=== PATIENT | female | born 1950 | race Caucasian/White ===

== ENCOUNTER → 2016-10-13 | Outpatient (CLI) | payer MEDICARE ==
[2015-01-02 14:33] VITALS: BP 113/64
[~2016-10-13] MED LIST: CELE200C PO; FAMO-63 PO; FURO-69 PO; HYDR-2762 PO; HYPR15DR9 EACHEYE; IBUP200T58 PO; LOPE1TAB4 PO; MUPI1OIN NS; NAPR220T70 PO; POTA20TA82 PO; WARF-78 PO
--- NOTE | 2016-10-13 15:57 | RAD ---
DATE: 10/13/2016 EXAM: DIGITAL SCREEN BILAT W/CAD HISTORY: Screening study. COMPARISON: 06/27/2014 This study was interpreted with the benefit of Computerized Aided Detection (CAD). The breast parenchyma shows scattered fibroglandular densities. Breast parenchyma level B. FINDINGS: Digital MLO and CC mammograms of both breasts were obtained. Comparison study is dated 06/27/2014. The breast parenchyma is composed of scattered fibroglandular densities which can obscure a lesion on mammography (breast density code B). No spiculated mass is seen. No malignant appearing calcification or area of architectural distortion is noted. Benign-appearing calcifications are seen within both breasts. Since the previous examination there has been no significant interval change. IMPRESSION: BI-RADS Category 1, negative. There is no mammographic evidence of malignancy. Routine yearly screening mammography is recommended for follow-up. BI-RADS CATEGORY: 1 NEGATIVE RECOMMENDED FOLLOW-UP: 12M 12 MONTH FOLLOW-UP PQRS compliance statement: Patient information was entered into a reminder system with a target due date 10/13/2017 for the next mammogram. Mammography is a sensitive method for finding small breast cancers, but it does not detect them all and is not a substitute for careful clinical examination. A negative mammogram does not negate a clinically suspicious finding and should not result in delay in biopsying a clinically suspicious abnormality. "Our facility is accredited by the [employer] Mammography [employer]."
== END | disposition home or self-care (01) ==
LOC: MAMMO 12:18
PROVIDERS: ATTEND Internal Medicine
DX: Z12.31 Encounter for screening mammogram for malignant neoplasm of breast (principal)
CPT/HCPCS: G0202; 77067

== ENCOUNTER → 2017-03-16 | Outpatient (CLI) | payer MEDICARE, OTHER | END | disposition home or self-care (01) | LOC: KCIC US 10:57 | DX: I10 Essential (primary) hypertension (principal) | CPT/HCPCS: 76770; 93975 ==

== ENCOUNTER → 2017-08-09 | Outpatient (CLI) | payer MEDICARE, OTHER ==
[~2017-08-09] MED LIST changes: +BUPIVACAINE MPF 0.25% 10 ML VIAL.; -CELE200C PO; -FAMO-63 PO; -FURO-69 PO; -HYDR-2762 PO; -HYPR15DR9 EACHEYE; -IBUP200T58 PO; +IOHEXOL 180 MG/ML 10 ML VIAL.; +LIDOCAINE 1% PF 2 ML VIAL.; -LOPE1TAB4 PO; -MUPI1OIN NS; -NAPR220T70 PO; -POTA20TA82 PO; -WARF-78 PO; +methylPREDNISolone ACETATE 80 MG/ML VIAL.
== END ==
LOC: PNCL 10:11
DX: M16.11 Unilateral primary osteoarthritis, right hip (principal); I10 Essential (primary) hypertension; M19.90 Unspecified osteoarthritis, unspecified site; Z90.710 Acquired absence of both cervix and uterus; Z98.49 Cataract extraction status, unspecified eye; Z96.651 Presence of right artificial knee joint; Z96.642 Presence of left artificial hip joint; Z79.899 Other long term (current) drug therapy; Z88.8 Allergy status to other drugs, medicaments and biological substances; Z82.61 Family history of arthritis; Z80.8 Family history of malignant neoplasm of other organs or systems; Z83.3 Family history of diabetes mellitus; Z82.49 Family history of ischemic heart disease and other diseases of the circulatory system; Z80.1 Family history of malignant neoplasm of trachea, bronchus and lung; Z98.41 Cataract extraction status, right eye; K21.9 Gastro-esophageal reflux disease without esophagitis; Z90.721 Acquired absence of ovaries, unilateral; Z98.890 Other specified postprocedural states; D64.9 Anemia, unspecified; Z86.14 Personal history of Methicillin resistant Staphylococcus aureus infection
CPT/HCPCS: 20610; 77002; J1040; J3490; Q9965

== ENCOUNTER → 2017-10-17 | Outpatient (CLI) | payer MEDICARE, OTHER ==
[2015-01-02 14:33] VITALS: BP 113/64
[~2017-10-17] MED LIST changes: -BUPIVACAINE MPF 0.25% 10 ML VIAL.; +CELE200C PO; +CRESTOR5 MG PO; +FAMO-63 PO; +FURO-69 PO; +HYDR-2762 PO; +HYPR15DR9 EACHEYE; +IBUP200T58 PO; -IOHEXOL 180 MG/ML 10 ML VIAL.; -LIDOCAINE 1% PF 2 ML VIAL.; +LOPE1TAB4 PO; +LOSA25TA5 PO; +MUPI1OIN NS; +NAPR220C4 PO; +NAPR220T70 PO; +POTA20TA82 PO; +WARF-78 PO; -methylPREDNISolone ACETATE 80 MG/ML VIAL.
--- NOTE | 2017-10-17 12:32 | RAD ---
DATE: 10/17/2017 EXAM: MAMMO SHABNAM SCREENING BILATERAL HISTORY: Routine screening COMPARISON: 10/13/2016 This study was interpreted with the benefit of Computerized Aided Detection (CAD). The breast parenchyma shows scattered fibroglandular densities. Breast parenchyma level B. FINDINGS: 2-D and 3-D tomosynthesis imaging was performed in CC and MLO projections. No new or enlarging breast densities are seen. Several benign type calcifications are noted. No suspicious microcalcifications have developed. IMPRESSION: Stable mammograms without evidence of malignancy. BI-RADS CATEGORY: 2 BENIGN FINDING(S) RECOMMENDED FOLLOW-UP: 12M 12 MONTH FOLLOW-UP PQRS compliance statement: Patient information was entered into a reminder system with a target due date for the next mammogram. Mammography is a sensitive method for finding small breast cancers, but it does not detect them all and is not a substitute for careful clinical examination. A negative mammogram does not negate a clinically suspicious finding and should not result in delay in biopsying a clinically suspicious abnormality. "Our facility is accredited by the [employer] Mammography [employer]."
== END | disposition home or self-care (01) ==
LOC: MAMMO 15:01
PROVIDERS: ATTEND Internal Medicine
DX: Z12.31 Encounter for screening mammogram for malignant neoplasm of breast (principal); I10 Essential (primary) hypertension; K21.9 Gastro-esophageal reflux disease without esophagitis; Z79.899 Other long term (current) drug therapy; Z96.651 Presence of right artificial knee joint; Z96.642 Presence of left artificial hip joint; Z86.14 Personal history of Methicillin resistant Staphylococcus aureus infection; Z88.8 Allergy status to other drugs, medicaments and biological substances; Z86.2 Personal history of diseases of the blood and blood-forming organs and certain disorders involving the immune mechanism; Z90.721 Acquired absence of ovaries, unilateral; Z90.710 Acquired absence of both cervix and uterus; Z82.49 Family history of ischemic heart disease and other diseases of the circulatory system; Z80.1 Family history of malignant neoplasm of trachea, bronchus and lung; Z83.3 Family history of diabetes mellitus; Z82.61 Family history of arthritis; Z80.8 Family history of malignant neoplasm of other organs or systems
CPT/HCPCS: 77063; 77067

== ENCOUNTER → 2017-11-13 | Outpatient (CLI) | payer MEDICARE ==
[2015-01-02 14:33] VITALS: BP 113/64
[~2017-11-13] MED LIST changes: +BUPIVACAINE MPF 0.25% 10 ML VIAL. ONE; +IOHEXOL 180 MG/ML 10 ML VIAL. ONE; +LIDOCAINE 2% PF 2ML VIAL. ONE; +methylPREDNISolone ACETATE 80 MG/ML VIAL. ONE
--- NOTE | 2017-11-13 17:18 | PAIN ---
DATE OF SERVICE: 11/13/2017 PROGRESS NOTE FOR PAIN CLINIC DIAGNOSIS: Right hip joint pain with primary osteoarthritis, right hip joint. HISTORY OF PRESENT ILLNESS: The patient is a 67-year-old female who returns for followup status post right intraarticular hip joint injection, last seen on 08/09/2017. The patient did very well with about a 60% improvement overall. For the first month and a half, was doing much better, increased distance walking, greater ability to maintain ambulation with greater comfort and ease, was climbing hills better, stepping up on stairs better, now is beginning to return with pain in the right hip and groin as it was previously. The patient reports it is much worse with standing and walking, can bother with sitting as well, but better with lying down. The patient reports it is an 8 on a scale of 10 at its worst, 3-5 on average and 2 at its least and is a 5 today. The patient reports no new motor or sensory deficits, no new bowel or bladder incontinence. The patient reports it awakens her from sleep occasionally if she sleeps on her right side, but usually not do more than every 6-8 hours at night. The patient can usually reposition and get the pain to decrease. The patient reports no new motor or sensory deficits, no new bowel or bladder incontinence. The patient describes the pain as aching, burning, stabbing, becoming more constant in the right hip and groin itself. PHYSICAL EXAMINATION: VITAL SIGNS: The patient's blood pressure is 123/68, pulse , respirations 18, temperature 97.5 degrees Fahrenheit, height is 5 feet 5 inches, weight is 167 pounds. GENERAL: The patient is awake, alert, oriented, appropriate, very pleasant demeanor. HEENT: Head shows normocephalic, atraumatic. Extraocular movements are intact and symmetrical. Oral cavity: Mucous membranes are moist and pink. Dentition is intact. NECK: Shows anterior throat supple without palpable lymphadenopathy noted. Swallow reflex is symmetrical. CHEST: Shows normal on inspection. Breath sounds are clear to auscultation bilaterally. HEART: Shows S1, S2 clear. No murmurs auscultated. ABDOMEN: Soft, nontender, nondistended. No palpable organomegaly is noted. No rebound or guarding demonstrated. BACK: Shows spine grossly in the midline. Normal appearing thoracic kyphosis and lumbar lordotic curvature. Lumbar paraspinous muscle shows symmetrical on inspection, on palpation shows some moderate tenderness without radiation. No tenderness over the sacroiliac regions. The patient has good rotational motion of lumbar spine, both laterally as well as extension and flexion without difficulty. EXTREMITIES: The patient's lower extremities show deep tendon reflexes at 1+ in the patellar and tendo-calcaneus tendons. Motor exam is strong with 5/5 dorsiflexion, extension, quadriceps and hamstring flexion and equal. The patient does have a positive Dinesh sign on the right with external rotation of the right hip with significant pain radiating into the groin as well as into the gluteus. Options were discussed with the patient. The patient's old chart was reviewed as her current medication regimen updated. Current review of systems updated today as well. We will proceed with a right intraarticular hip joint injection with fluoroscopic guidance today. Risks were again discussed including, but not limited to bleeding, infection, possibility of epidural hematoma and subsequent neurologic compromise, dural puncture, headaches, spinal cord and/or nerve damage, side effects of steroid medication and poor results regarding pain control. The patient understands and wished to proceed. The patient will return to the clinic in approximately 2 weeks for followup, was counseled on return appointment, activity level and side effects to be aware of. DIAGNOSIS: Right hip joint pain with primary osteoarthritis, right hip joint. PROCEDURE: Right intraarticular hip joint injection using C-arm fluoroscopic guidance under sterile prep and drape using local anesthetic. MEDICATION INJECTED: A total of 80 mg of Depo-Medrol plus 3 mL of 0.25% of bupivacaine and 2 mL of Isovue for contrast. CONDITION AT DISCHARGE: Stable. The patient tolerated the procedure well, had no complications. TEJ SANDRA MD DR: OMAR/cyndi JOB#: [id number] / [id number]
== END | disposition home or self-care (01) ==
LOC: PNCL 07:38
PROVIDERS: ATTEND Anesthesiology
DX: M16.11 Unilateral primary osteoarthritis, right hip (principal); Z88.5 Allergy status to narcotic agent; Z88.8 Allergy status to other drugs, medicaments and biological substances
CPT/HCPCS: 20610; 77002; J1040; J2001; J3490; Q9965

== ENCOUNTER → 2018-03-05 | Outpatient (CLI) | payer MEDICARE ==
[2015-01-02 14:33] VITALS: BP 113/64
[~2018-03-05] MED LIST changes: -BUPIVACAINE MPF 0.25% 10 ML VIAL. ONE; -HYDR-2762 PO; +HYDR-2765 PO; -IOHEXOL 180 MG/ML 10 ML VIAL. ONE; -LIDOCAINE 2% PF 2ML VIAL. ONE; +LOSA1TAB2 PO; -LOSA25TA5 PO; +LOSA25TA54 PO; +OXYC1TAB15 PO; -methylPREDNISolone ACETATE 80 MG/ML VIAL. ONE
[2018-03-05 09:28] LABS: ALBUMIN 3.9 g/dL (3.4-5.0); CALCIUM 9.1 mg/dL (8.5-10.1); CREATININE 1.2 mg/dL (0.6-1.0); GFR 44.5; POTASSIUM 3.6 mmol/L (3.5-5.1)
[2018-03-05 09:33] LABS: BASO # 0.1 x10^3/uL (0.0-0.2); BASO % 1 % (0-3); EOS # 0.1 x10^3/uL (0.0-0.7); EOS % 2 % (0-3); HEMATOCRIT 35.2 % (36.0-47.0); HEMOGLOBIN 12.1 g/dL (12.0-15.5); LYMPH % 19 % (24-48); MEAN CORPUSCULAR HEMOGLOBIN 28 pg (25-35); MEAN CORPUSCULAR HGB CONC 34 g/dL (31-37); MEAN CORPUSCULAR VOLUME 80 fL (79-100); MONO # 0.5 x10^3/uL (0.0-1.1); MONO % 9 % (0-9); NEUT # 3.6 x10^3uL (1.8-7.7); NEUT % 69 % (31-73); PLATELET COUNT 239 x10^3/uL (140-400); RED BLOOD COUNT 4.38 x10^6/uL (3.50-5.40); RED CELL DISTRIBUTION WIDTH 13.8 % (11.5-14.5); WHITE BLOOD COUNT 5.2 x10^3/uL (4.0-11.0)
[2018-03-05 09:39] LABS: PROTHROMBIN TIME PATIENT 12.9 SEC (11.7-14.0)
--- NOTE | 2018-03-05 12:25 | EKG ---
[facility] [address] [place] [address] Test Date: 2018-03-05 Test Time: 12:13:23 Pat Name: ELEUTERIO LEWIS Department: Patient ID: [id number] Room: Gender: F Materials Inspector: [facility] : 1950 Requested By: TOI WINSTON Order Number: [id number] Reading MD: Earl Martin MD Measurements Intervals [place] Rate: 60 P: 69 MI: 140 QRS: 12 QRSD: 88 T: 45 QT: 406 QTc: 406 Interpretive Statements SINUS RHYTHM NON-SPECIFIC ST/T CHANGES Electronically Signed On 03-07-2018 10:16:54 [employer] TM1 DEVELOPER by Earl Martin MD
[2018-03-05 12:32] LABS: BILIRUBIN,URINE NEGATIVE (NEG); CLARITY,URINE CLOUDY; COLOR,URINE YELLOW; NITRITE,URINE NEGATIVE (NEG); PROTEIN,URINE NEGATIVE (NEG-TRACE); UROBILINOGEN,URINE 0.2 mg/dL (0.2 mg/dL)
[2018-03-05 12:44] LABS: BACTERIA,URINE 0 /HPF (0-FEW); HYALINE CASTS, URINE MODERATE /HPF; RBC,URINE 0 /HPF (0-2); SQUAMOUS EPITHELIAL CELL,UR MOD /LPF
--- NOTE | 2018-03-05 15:09 | RAD ---
PROCEDURE: CHEST PA LATERAL CLINICAL INDICATION: HYPERTENSION, POST OP EVALUATION COMPARISON: None FINDINGS: No pneumothorax identified. Cardiac and mediastinal contours unremarkable. No pulmonary consolidation or acute airspace disease. No acute osseous abnormalities identified. IMPRESSION: No pulmonary consolidation or acute airspace disease. Electronically signed by: Pedro Enrique DO (03/05/2018 3:05 PM) [id number]
== END | disposition home or self-care (01) ==
LOC: SURGPAT 13:30
PROVIDERS: ATTEND Orthopaedic Surgery
DX: Z01.818 Encounter for other preprocedural examination (principal); M16.11 Unilateral primary osteoarthritis, right hip; I10 Essential (primary) hypertension; R94.31 Abnormal electrocardiogram [ECG] [EKG]
CPT/HCPCS: 36415; 71046; 80048; 81001; 82040; 85025; 85610; 85651; 85730; 87086; 87641; 93005

== ENCOUNTER → 2018-10-18 | Outpatient (CLI) | payer MEDICARE ==
[2018-03-22 07:49] VITALS: BP 128/62
--- NOTE | 2018-10-18 14:57 | RAD ---
DATE: 10/18/2018 8:58 AM EXAM: MAMMO SHABNAM SCREENING BILATERAL HISTORY: routine screening evaluation. COMPARISON: Prior mammographic imaging 06/27/2014, 10/13/2016, [id number] Bilateral CC and MLO views of the breasts were performed. Bilateral breast tomosynthesis was performed in CC and MLO projections. This study was interpreted with the benefit of Computerized Aided Detection (CAD). FINDINGS: Breast Density: FATTY The Breast Parenchyma is primarily fatty replaced. Breast parenchyma level density A. Benign calcifications are present. The parenchymal pattern appears stable. No suspicious masses, microcalcifications or architectural distortion is present to suggest malignancy in either breast. The visualized axillae are unremarkable. IMPRESSION: No mammographic evidence of malignancy. BI-RADS CATEGORY: 2 BENIGN FINDING(S) RECOMMENDED FOLLOW-UP: 12M 12 MONTH FOLLOW-UP Annual screening mammography is recommended, unless clinically indicated sooner based on symptoms or change in physical exam. PQRS compliance statement: Patient information was entered into a reminder system with a target due date for the next mammogram. Mammography is a sensitive method for finding small breast cancers, but it does not detect them all and is not a substitute for careful clinical examination. A negative mammogram does not negate a clinically suspicious finding and should not result in delay in biopsying a clinically suspicious abnormality. "Our facility is accredited by the [employer] Mammography [employer]."
== END | disposition home or self-care (01) ==
LOC: MAMMO 08:46
PROVIDERS: ATTEND Family Medicine
DX: Z12.31 Encounter for screening mammogram for malignant neoplasm of breast (principal); N64.89 Other specified disorders of breast
CPT/HCPCS: 77063; 77067

== ENCOUNTER → 2020-12-01 | Outpatient (CLI) | payer MEDICARE ==
[2018-03-22 07:49] VITALS: BP 128/62
[~2020-12-01] MED LIST changes: +POTA20TA4 PO; -POTA20TA82 PO; -WARF-78 PO; +WARF5TAB2 PO
--- NOTE | 2020-12-01 16:45 | RAD ---
Bilateral digital screening 2-D and 3-D (digital breast tomosynthesis) mammogram: Reason for examination: Routine screening. Comparison: Mammograms from 10/18/2018 and 10/17/2017. Interpretation was made with the benefit of CAD. FINDINGS: Breast density: Category A. Breast tissue is almost entirely fatty. No suspicious breast mass, malignant appearing calcifications, or architectural distortion is seen. IMPRESSION: No evidence of malignancy. Assessment: BI-RADS 1. Negative. Recommendation: Routine screening mammograms. The patient will receive a letter with the results in the mail. Patient information will be entered i nto the mammography reminder system with a target recall date for the next mammogram. A reminder manjinder er will be generated. Electronically signed by: Rosetta Barnett MD (12/01/2020 4:43 PM) [id number]
== END ==
LOC: MAMMO 13:35
PROVIDERS: ATTEND Family Medicine
DX: Z12.31 Encounter for screening mammogram for malignant neoplasm of breast (principal)
CPT/HCPCS: 77063; 77067